=== PATIENT | male | born 1965 | race African-American/Black ===

== ENCOUNTER → 2016-10-21 | Outpatient (CLI) | payer OTHER ==
[~2016-10-21] VITALS: Ht 190.5 cm; Wt 104.3 kg
[~2016-10-21] MED LIST: DAILY MULTIPLE1 EACH PO
== END | disposition home or self-care (01) ==
LOC: AMB 12:00
PROC: 0DBP8ZX Excision of Rectum, Via Natural or Artificial Opening Endoscopic, Diagnostic (ICD-10-PCS; principal; 2016-10-21)
DX: Z12.11 Encounter for screening for malignant neoplasm of colon (principal); K62.1 Rectal polyp; Z80.0 Family history of malignant neoplasm of digestive organs; I10 Essential (primary) hypertension; F17.210 Nicotine dependence, cigarettes, uncomplicated
CPT/HCPCS: 88305; J2250; J3010